=== PATIENT | male | born 1965 | race Caucasian/White ===

== ENCOUNTER 2016-08-18 08:50 | Emergency (ER) | END 2016-08-18 12:18 | disposition home or self-care (01) | DX: S82.831A Other fracture of upper and lower end of right fibula, initial encounter for closed fracture (principal); F17.210 Nicotine dependence, cigarettes, uncomplicated; X50.1XXA Overexertion from prolonged static or awkward postures, initial encounter; Y92.9 Unspecified place or not applicable | CPT/HCPCS: 29515; 73610; Z7502 ==

== ENCOUNTER 2016-08-28 10:46 | Emergency (ER) | payer OTHER ==
[~2016-08-28] VITALS: Wt 72.0 kg
[~2016-08-28 10:46] MED LIST: AMOX1TAB67 PO; BAC30OI TOP; GUAI473L22 PO; HYDR-3498 PO; HYDR-906 PO; IBUP-1542 PO; NAPR-260 PO; SODI126M NASAL
[2016-08-28] MEDS ORDERED: NAPR-260 PO (11:15)
[2016-08-28] MEDS ORDERED: TRAM50TA2 PO (11:15)
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
== END 2016-08-28 11:30 | disposition home or self-care (01) ==
LOC: FTE 10:46
DX: Z76.0 Encounter for issue of repeat prescription (principal)
CPT/HCPCS: 99283

== ENCOUNTER 2016-10-26 12:32 | Emergency (ER) | payer OTHER ==
[~2016-10-26] VITALS: Ht 172.7 cm; Wt 71.0 kg
[~2016-10-26 12:32] MED LIST changes: +TRAM50TA2 PO
[2016-10-26 12:34] VITALS: Ht 172.7 cm; Wt 71.0 kg
[2016-10-26] MEDS ORDERED: SOD CHLORIDE 0.9% 1,000 ML IV STA (12:56)
[2016-10-26] MEDS ORDERED: VANCOMYCIN 1 GM (PMX) 250 ML IVPB STA (12:57)
[2016-10-26] MEDS ORDERED: CEFTRIAXONE 1 GM/50 ML (PMX) 50 ML IVPB STA (12:57)
[2016-10-26] MEDS ORDERED: ACETAMINOPHEN 500 MG TAB PO STA (12:57)
[2016-10-26 13:32] LABS: ADD SCAN DIFF NO
[2016-10-26 13:38] LABS: ABNORMAL IP MESSAGE 1; BASOPHILS % 0.2 % (0.0-2.0); EOSINOPHILS % 0.1 % (0.0-7.0); HEMATOCRIT 41.6 % (42.0-52.0); HEMOGLOBIN 13.9 g/dl (14.0-18.0); LYMPHOCYTES # 0.8 10^3/ul (0.8-2.9); MEAN CORPUSCULAR HEMOGLOBIN 33.7 pg (29.0-33.0); MEAN CORPUSCULAR HGB CONC 33.4 g/dl (32.0-37.0); MEAN CORPUSCULAR VOLUME 100.7 fl (82.0-101.0); MONOCYTE # 1.6 10^3/ul (0.3-0.9); MONOCYTES % 8.4 % (0.0-11.0); NEUTROPHIL # 16.3 10^3/ul (1.6-7.5); NEUTROPHILS % 86.8 % (39.0-77.0); PLATELET COUNT 280 10^3/UL (140-415); RED BLOOD COUNT 4.13 10^6/ul (4.70-6.10); RED CELL DISTRIBUTION WIDTH 14.6 % (11.5-14.5); WHITE BLOOD COUNT 18.8 10^3/ul (4.8-10.8)
[2016-10-26 13:41] LABS: ADD UMIC YES; URINE BILIRUBIN (Dip) 1+ (NEGATIVE); URINE BLOOD (Dip) NEGATIVE (NEGATIVE); URINE COLOR YELLOW (YELLOW); URINE GLUCOSE (Dip) NEGATIVE (NEGATIVE); URINE KETONES (Dip) NEGATIVE (NEGATIVE); URINE LEUKOCYTE ESTERASE (Dip) NEGATIVE (NEGATIVE); URINE NITRITE (Dip) NEGATIVE (NEGATIVE); URINE TOTAL PROTEIN (Dip) 1+ (NEGATIVE); URINE UROBILINOGEN (Dip) 1.0 E.U./dL (0.1-1.0)
[2016-10-26 13:48] LABS: INR 0.94; PROTIME 12.6 Sec (12.2-14.2)
[2016-10-26 13:49] LABS: PARTIAL THROMBOPLASTIN TIME 29.3 Sec (25.0-35.0)
[2016-10-26 13:51] LABS: ALANINE AMINOTRANSFERASE 30 IU/L (13-69); ALBUMIN 3.9 g/dl (3.3-4.9); ALBUMIN/GLOBULIN RATIO 0.95; ALKALINE PHOSPHATASE 118 IU/L (42-121); ANION GAP 15 (8-16); ASPARTATE AMINO TRANSFERASE 25 IU/L (15-46); BILIRUBIN,INDIRECT 0.7 mg/dl (0-1.1); BILIRUBIN,TOTAL 0.7 mg/dl (0.2-1.3); BLOOD UREA NITROGEN 9 mg/dl (7-20); CARBON DIOXIDE 23 mmol/L (21-31); CHLORIDE 99 mmol/L (97-110); CREATININE 0.69 mg/dl (0.61-1.24); GLUCOSE 106 mg/dl (70-220); POTASSIUM 3.7 mmol/L (3.5-5.1); SODIUM 133 mmol/L (135-144)
[2016-10-26 13:53] LABS: ICTOTEST NEGATIVE (NEGATIVE)
[2016-10-26 14:03] LABS: TROPONIN-I < 0.012 ng/ml (0.00-0.12)
--- NOTE | 2016-10-26 14:03 | RADRPT ---
PROCEDURE: XR Left Hand CLINICAL INDICATION: Injury TECHNIQUE: AP, oblique, and lateral radiographs were submitted. COMPARISON: None FINDINGS: Osseous structures: appear well mineralized and intact with no fracture or destructive process iden tified. Joint spaces: are well maintained, with no significant spurring, erosion or joint effusion evident. Soft tissues: There is extensive soft tissue swelling involving the ring finger diffusely. IMPRESSION: 1. Diffuse soft tissue swelling involving the left ring finger. 2. Otherwise, unremarkable left hand series. Physician [place] Date Time Electronically viewed and signed by Kim Pradhan Physician on 10/26/2016 14:03 /
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
[2016-10-26] MEDS ORDERED: IBUPROFEN 800 MG TAB PO STA (15:09)
--- NOTE | 2016-10-26 15:36 | QN ---
Documentation Comment My independent concise history is left fourth finger infection. My pertinent physical exam findings are sausage digit of the 4th finger with swelling and bruising. The plan is transfer to [facility] for insurance reasons as the patient is capitated. The patient will need drainage by a client solutions specialist. NATIVIDAD GARZA MD Oct 26, 2016 15:36
[2016-10-26 19:45] VITALS: BP 118/72; PULSE 85; RESP 18; TEMP 97.9
== END 2016-10-26 21:16 | disposition short-term general hospital (02) ==
LOC: FTE 12:32
DX: M65.842 Other synovitis and tenosynovitis, left hand (principal); I89.1 Lymphangitis; F17.210 Nicotine dependence, cigarettes, uncomplicated
CPT/HCPCS: 36415; 73130; 80053; 81001; 81003; 83605; 84484; 85025; 85610; 85730; 87040; 93005; 96374; 96375; J0696; J3370; J7030; Z7502; Z7610

== ENCOUNTER 2016-11-12 09:00 | Emergency (ER) | payer OTHER ==
[~2016-11-12] VITALS: Ht 157.5 cm; Wt 78.8 kg
[~2016-11-12 09:00] MED LIST changes: -BAC30OI TOP; +BACI28.34 TOP
[2016-11-12 09:02] VITALS: Ht 157.5 cm; Wt 78.8 kg
== END 2016-11-12 11:35 | disposition left against medical advice (07) ==
LOC: FTE 09:00
DX: Z53.21 Procedure and treatment not carried out due to patient leaving prior to being seen by health care provider (principal)

== ENCOUNTER 2018-03-14 11:37 | Emergency (ER) | END 2018-03-14 12:41 | disposition left against medical advice (07) ==

== ENCOUNTER 2018-12-16 15:10 | Emergency (ER) | payer OTHER ==
[~2018-12-16] VITALS: Wt 78.0 kg
[~2018-12-16 15:10] MED LIST changes: +HYDR-4011 PO; -HYDR-906 PO; -NAPR-260 PO; +NAPR-985 PO
[2018-12-16 15:15] VITALS: BP 145/76; PULSE 99; RESP 18
[2018-12-16] MEDS ORDERED: KETOROLAC 60 MG INJ IM STA (16:05)
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
[2018-12-16] MEDS ORDERED: MELO7.5T38 PO (17:26)
== END 2018-12-16 18:02 | disposition home or self-care (01) ==
LOC: FTE 15:10
DX: S62.326A Displaced fracture of shaft of fifth metacarpal bone, right hand, initial encounter for closed fracture (principal); W01.0XXA Fall on same level from slipping, tripping and stumbling without subsequent striking against object, initial encounter; Y92.9 Unspecified place or not applicable
CPT/HCPCS: 29125; 73130; 96372; 99284; J1885

== ENCOUNTER 2019-03-15 12:01 | Emergency (ER) | payer SELFPAY ==
[~2019-03-15] VITALS: Ht 177.8 cm; Wt 72.1 kg
[~2019-03-15 12:01] MED LIST changes: +MELO7.5T38 PO
[2019-03-15 12:09] VITALS: Ht 177.8 cm; Wt 72.1 kg
[2019-03-15] MEDS ORDERED: SOD CHLORIDE 0.9% 100 ML ONE (14:23)
[2019-03-15] MEDS ORDERED: IOHEXOL 300MG/ML 150 ML BTL ONE (14:23)
[2019-03-15 15:55] VITALS: BP 148/85; PULSE 86; RESP 18
== END 2019-03-15 15:57 | disposition home or self-care (01) ==
LOC: E/R 12:01
DX: R10.31 Right lower quadrant pain (principal)
CPT/HCPCS: 36415; 74177; 80053; 81001; 83690; 85025; 99284; Q9967